=== PATIENT | female | born 1950 | race Caucasian/White ===

== ENCOUNTER 2018-09-13 15:13 | Emergency (ER) | payer OTHER ==
[~2018-09-13] VITALS: Ht 157.5 cm; Wt 46.7 kg
[2018-09-13 15:16] VITALS: BP 117/69; PULSE 86; RESP 18; Ht 157.5 cm; Wt 46.7 kg
[2018-09-13] MEDS ORDERED: MECL12.574 PO (15:30)
--- NOTE | 2018-09-13 15:35 | ERD ---
ER Documentation Chief Complaint Chief Complaint C/O DIZZINESS SINCE MONDAY. NO N/V. AMBULATES WITH STEADY GAIT. HPI 68-year-old female with history of thyroid disorder, hyperlipidemia, pre diabetes, anxiety presents for dizziness x4 days. She states that the dizziness is a spinning sensation. The dizziness is worse with movement. She denies any vomiting or nausea. Denies any fevers. No neck pain noted. She has had prior similar symptoms in the past. She denies any recent infection. No chest pain or shortness of breath noted. No abdominal pain noted. She had recent blood work with her primary care doctor and was told that it was normal. No other modifying factors noted, no treatments tried at home. ROS All systems reviewed and are negative except as per history of present illness. Medications Home Meds Active Scripts Meclizine Hcl* (Antivert*) 12.5 Mg Tab, 12.5 MG PO Q8H PRN for dizziness, #30 TAB Prov:VERITO BAJWA DO 09/13/18 PMhx/Soc History of hypothyroidism, hyperlipidemia, prediabetes, anxiety History of Surgery: Yes (Bilateral eye surgeries, appendectomy) Hx Alcohol Use: No Hx Substance Use: No Hx Tobacco Use: No Smoking Status: Never smoker FmHx Family History: No coronary disease Physical Exam Vitals Vital Signs Date Temp Pulse Resp B/P (MAP) Pulse Ox O2 O2 Flow FiO2 Time Delivery Rate 09/13/18 98.8 86 18 117/69 98 15:16 (85) Physical Exam Const: No acute distress Head: Atraumatic, PERRLA, EOMI, no nystagmus horizontal Eyes: Normal Conjunctiva ENT: Normal External Ears, Nose and Mouth. Neck: Full range of motion. No meningismus. Resp: Clear to auscultation bilaterally Cardio: Regular rate and rhythm, no murmurs, peripheral pulses intact Skin: No petechiae or rashes Ext: No cyanosis, or edema, bilateral upper and lower extremity muscle strength 5 out of 5 Neur: Awake and alert, bilateral upper and lower sensation intact Psych: Normal Mood and Affect Procedures/MDM Medical Decision Making: Differential diagnosis includes but not limited to benign vertigo, CVA, TIA, labyrinthitis, meniere's disease, brain tumor, seizure. ED course: Patient appeared well on physical exam. Patient neurovascularly intact. No faci al droop, muscle weakness, sensation deficit or slurred speech to suggest CVA No focal neuro deficits to suggest brain tumor. No nystagmus noted on physical examination Patient possibly has benign vertigo Prescription(s): Patient given prescription for supportive medication(s) including meclizine. Patient advised regarding possible need for neurology follow up if symptoms do n ot improve. Patient advised to follow up with PCP in 1-2 days. Patient advised to return to ED for new or worsening symptoms. Patient stable on discharge from the ED. Disclaimer: Inadvertent spelling and grammatical errors are likely due to EHR/dictation software use and do not reflect on the overall quality of patient care. Also, please note that the electronic time recorded on this note does not necessarily reflect the actual time of the patient encounter. Departure Diagnosis: Primary Impression: Dizziness Condition: Fair Patient Instructions: Dizziness (Vertigo) and Balance Problems: Ensuring Your Safety Referrals: [facility] YOU HAVE RECEIVED A MEDICAL SCREENING EXAM AND THE RESULTS INDICATE THAT YOU DO NOT HAVE A CONDITION THAT REQUIRES URGENT TREATMENT IN THE EMERGENCY DEPARTMENT. FURTHER EVALUATION AND TREATMENT OF YOUR CONDITION CAN WAIT UNTIL YOU ARE SEEN IN YOUR DOCTORS OFFICE WITHIN THE NEXT 1-2 DAYS. IT IS YOUR RESPONSIBILITY TO MAKE AN APPOINTMENT FOR FOLOW-UP CARE. IF YOU HAVE A PRIMARY DOCTOR --you should call your primary doctor and schedule an appointment IF YOU DO NOT HAVE A PRIMARY DOCTOR YOU CAN CALL OUR PHYSICIAN REFERRAL HOTLINE AT IF YOU CAN NOT AFFORD TO SEE A PHYSICIAN YOU CAN CHOSE FROM THE FOLLOWING [facility] [address] [facility]. [facility] [address] [facility]. [facility] [address] [facility]. [facility] [address] [facility]. [facility] [address] [facility]. [facility]. [address] Additional Instructions: Llame al doctor MAANA y carola kanika MELANY PARA DENTRO DE 1-2 HAMMONDS.Dgale a la secretaria que nosotros le instruimos hacer esta melany.Avise o llame si mcgrath condicin se empeora antes de la melany. Regresa aqui si peor o no mejor. VERITO BAJWA DO Sep 13, 2018 15:35
== END 2018-09-13 15:42 | disposition home or self-care (01) ==
LOC: E/R 15:13
DX: R42 Dizziness and giddiness (principal); E03.9 Hypothyroidism, unspecified
CPT/HCPCS: 99282